=== PATIENT | male | born 1945 | race Caucasian/White ===

== ENCOUNTER 2016-06-01 19:14 | Inpatient (IN) | payer MEDICARE, OTHER ==
[~2016-06-01] VITALS: Ht 177.8 cm; Wt 120.8 kg
[~2016-06-01 19:14] MED LIST: ATOR10TA GT; GLYB1TAB3 GT; PIOG30TA2 PO
[2016-06-01] MEDS ORDERED: IV NS 0.9% 1,000 ML BAG IV ONE ×2 (19:30→21:30)
[2016-06-01] MEDS ORDERED: IV NS 0.9% 1,000 ML ONE ×2 (19:32→22:58)
[2016-06-01] MEDS ORDERED: IV SET PRIMARY 1 EA INFUS.SET MC ONE ×2 (19:32→22:58)
[2016-06-01 19:53] LABS: ANION GAP 15 (5-14); CALCIUM, SERUM 9.2 mg/dL (8.5-10.1); CARBON DIOXIDE 24 mmol/L (21-32); CHLORIDE 100 mmol/L (98-107); CREATININE 1.4 mg/dL (0.6-1.3); GLUCOSE 234 mg/dL (74-106); POTASSIUM 4.1 mmol/L (3.5-5.1); SODIUM SERUM 135 mmol/L (136-145); UREA NITROGEN, BLOOD 21 mg/dL (7-18)
[2016-06-01 20:00] LABS: ALANINE AMINOTRANSFERASE 158 U/L (12-78); ALBUMIN 2.5 g/dL (3.4-5.0); ASPARTATE AMINOTRANSFERASE 114 U/L (15-37); BILIRUBIN,DIRECT 7.4 mg/dL (0.0-0.2); BILIRUBIN,TOTAL 8.5 mg/dL (0.2-1.0); INDIRECT BILIRUBIN 1.1 mg/dL (0.0-1.1); INR 1.2 (0.87-1.13); TOTAL PROTEIN, SERUM 7.4 g/dL (6.4-8.2)
[2016-06-01 20:02] LABS: TROPONIN I < 0.017 ng/mL (0.00-0.056)
[2016-06-01 20:36] LABS: DIFF TOTAL % 100 %; HEMATOCRIT 36 % (39-51); HEMOGLOBIN 12.3 g/dL (13.5-17.5); LYMPHOCYTES # (AUTO) 0.3 /CMM (0.8-4.8); LYMPHOCYTES % (AUTO) 2.4 % (20.0-44.0); MEAN CORPUSCULAR HEMOGLOBIN 30 PG (26.0-33.0); MEAN CORPUSCULAR HGB CONC 34 g/dl (31.0-36.0); MEAN CORPUSCULAR VOLUME 88 fL (80-96); MONOCYTES # (AUTO) 0.5 /CMM (0.1-1.30); MONOCYTES % (AUTO) 3.6 % (2.0-12.0); NEUTROPHILS # (AUTO) 12.6 /CMM (1.8-8.9); PLATELET COUNT (AUTO) 288 /CMM (150-450); RED BLOOD CELL COUNT(AUTO) 4.14 MIL/uL (4.5-6.0); WHITE BLOOD COUNT (AUTO) 13.4 K/uL (4.3-11.0)
[2016-06-01] MEDS ORDERED: IOHEXOL-300 100 ML VIAL IV ONE (21:25)
[2016-06-01] MEDS ORDERED: IV NS 0.9% 250 ML IV ONE (21:25)
[2016-06-01] MEDS ORDERED: CT SWABBABLE VALVE TRANS SET 1 EA INFUS.SET MC ONE (21:25)
[2016-06-01 21:47] LABS: BAND % (MANUAL) 22 % (0.0-5.0); LYMPHOCYTES % (MANUAL) 5 % (16-48)
[2016-06-01 21:48] LABS: ANISOCYTOSIS 1+; PLATELET ESTIMATE ADEQUATE
[2016-06-02 01:30] VITALS: BP 121/60
[2016-06-02 02:00] VITALS: BP 121/60
[2016-06-02] MEDS ORDERED: DEXTROSE 50%-WATER 50 ML DISP.SYRIN IV PRN (02:30)
[2016-06-02] MEDS ORDERED: Z GUARD REMEDY 2 OZ OINT TP PRN (02:30)
[2016-06-02] MEDS ORDERED: ACETAMINOPHEN 325 MG TABLET PO PRN (02:30)
[2016-06-02] MEDS ORDERED: ONDANSETRON HCL/PF 4 MG/2 ML VIAL IVP PRN (02:30)
[2016-06-02] MEDS ORDERED: ZOLPIDEM TARTRATE 5 MG TABLET PO PRN (02:30)
[2016-06-02] MEDS: BLOOD SUGAR DIAGNOSTIC 1 EACH STRIP IN SCH ×5 (02:30→21:51)
[2016-06-02] MEDS ORDERED: MORPHINE SULFATE INJ 2 MG/ML DISP.SYRIN IV PRN (02:30)
[2016-06-02] MEDS ORDERED: IV SET PRIMARY PUMP SET 1 EA INFUS.SET MC ONE (03:27)
[2016-06-02] MEDS ORDERED: IV NS 0.9% 1,000 ML ONE (03:28)
[2016-06-02] MEDS: IV NS 0.9% 1,000 ML IV PRN ×2 (03:31→20:31)
[2016-06-02] MEDS: INSULIN REGULAR, HUMAN 100 UNIT/ML 3 ML VIAL SQ PRN (06:16)
[2016-06-02 08:00] VITALS: BP 116/61
[2016-06-02] MEDS: PANTOPRAZOLE 40 MG TABLET.DR PO SCH (08:26)
[2016-06-02 16:00] VITALS: BP 127/69
[2016-06-02 20:00] VITALS: BP 129/62
[2016-06-02 22:00] VITALS: BP 129/62
[2016-06-03] MEDS: BLOOD SUGAR DIAGNOSTIC 1 EACH STRIP IN SCH ×4 (06:22→21:54)
[2016-06-03 06:59] LABS: HEMATOCRIT 28 % (39-51); HEMOGLOBIN 9.5 g/dL (13.5-17.5); MEAN CORPUSCULAR HEMOGLOBIN 30 PG (26.0-33.0); MEAN CORPUSCULAR HGB CONC 34 g/dl (31.0-36.0); MEAN CORPUSCULAR VOLUME 88 fL (80-96); PLATELET COUNT (AUTO) 194 /CMM (150-450); RED BLOOD CELL COUNT(AUTO) 3.16 MIL/uL (4.5-6.0); RETICULOCYTE COUNT 2.2 % (0.6-2.5); WHITE BLOOD COUNT (AUTO) 5.5 K/uL (4.3-11.0)
[2016-06-03] MEDS: PANTOPRAZOLE 40 MG TABLET.DR PO SCH ×2 (07:30→08:53)
[2016-06-03 07:41] LABS: ALANINE AMINOTRANSFERASE 102 U/L (12-78); ALBUMIN 1.7 g/dL (3.4-5.0); ANION GAP 12 (5-14); ASPARTATE AMINOTRANSFERASE 61 U/L (15-37); BILIRUBIN,TOTAL 5.4 mg/dL (0.2-1.0); CARBON DIOXIDE 25 mmol/L (21-32); CHLORIDE 108 mmol/L (98-107); CREATININE 0.9 mg/dL (0.6-1.3); GLUCOSE 124 mg/dL (74-106); POTASSIUM 3.7 mmol/L (3.5-5.1); SODIUM SERUM 141 mmol/L (136-145); TOTAL PROTEIN, SERUM 5.8 g/dL (6.4-8.2); UREA NITROGEN, BLOOD 21 mg/dL (7-18)
[2016-06-03 07:47] LABS: CHOLESTEROL 231 mg/dL (<200); LDL 192 mg/dL (0-99); THYROID STIMULATING HORMONE 0.658 uIU/mL (0.358-3.74); TRIGLYCERIDES 232 mg/dL (30-150)
[2016-06-03 07:49] LABS: IRON, SERUM 40 ug/dl (50-175); PERCENT SATURATION 20 % (14-33); TOTAL IRON BINDING CAPACITY 202 ug/dl (250-450)
[2016-06-03 08:00] VITALS: BP 115/65
[2016-06-03 08:19] LABS: HDL CHOLESTEROL < 10 mg/dL (40-60)
[2016-06-03] MEDS: IV NS 0.9% 1,000 ML IV PRN (08:55)
[2016-06-03] MEDS ORDERED: SECONDARY IV SET 1 EA INFUS.SET MC ONE (09:38)
[2016-06-03] MEDS: Magnesium 1GM/D5W 100ML PREMIX 100 ML IV SCH ×2 (09:43→12:41)
[2016-06-03 10:12] LABS: ERYTHROCYTE SEDIMENTATION RATE > 140 MM/HR (0-20)
[2016-06-03 10:48] LABS: EOSINOPHILS % (MANUAL) 2 % (0-4); LYMPHOCYTES % (MANUAL) 22 % (16-48); PLATELET ESTIMATE ADEQUATE
[2016-06-03 10:49] LABS: RBC MORPHOLOGY COMMENT NORMAL RBC MORPH
[2016-06-03] MEDS ORDERED: IOHEXOL 50 ML IV ONE (10:50)
[2016-06-03] MEDS ORDERED: SUCCINYLCHOLINE CHLORIDE 20 MG/ML VIAL ONE (10:55)
[2016-06-03 12:47] LABS: HEPATITIS C VIRUS AB <0.1 s/co ratio (0.0-0.9)
[2016-06-03 16:00] VITALS: BP 123/69
[2016-06-03] MEDS: INSULIN REGULAR, HUMAN 100 UNIT/ML 3 ML VIAL SQ PRN ×2 (17:00→21:56)
[2016-06-03 19:57] VITALS: BP 104/54
[2016-06-03 22:00] VITALS: BP 104/54
[2016-06-04] MEDS: BLOOD SUGAR DIAGNOSTIC 1 EACH STRIP IN SCH (06:21)
[2016-06-04] MEDS: INSULIN REGULAR, HUMAN 100 UNIT/ML 3 ML VIAL SQ PRN (06:22)
[2016-06-04] MEDS: IV NS 0.9% 1,000 ML IV PRN (06:26)
[2016-06-04 07:28] LABS: CALCIUM, SERUM 8.4 mg/dL (8.5-10.1); CREATININE 0.9 mg/dL (0.6-1.3); POTASSIUM 4.1 mmol/L (3.5-5.1)
[2016-06-04 07:51] LABS: ALBUMIN 1.8 g/dL (3.4-5.0); BILIRUBIN,DIRECT 2.1 mg/dL (0.0-0.2); BILIRUBIN,TOTAL 2.7 mg/dL (0.2-1.0); INDIRECT BILIRUBIN 0.6 mg/dL (0.0-1.1); TOTAL PROTEIN, SERUM 6.2 g/dL (6.4-8.2)
[2016-06-04 08:00] VITALS: BP 110/60
[2016-06-04] MEDS: PANTOPRAZOLE 40 MG TABLET.DR PO SCH (10:23)
== END 2016-06-04 14:12 | disposition home or self-care (01) | DRG 444 ==
LOC: ER 19:16 → MED 23:58
PROVIDERS: ADMIT Nurse Practitioner Acute Care; ATTEND Nurse Practitioner Acute Care
PROC: BF14YZZ Fluoroscopy of Gallbladder, Bile Ducts and Pancreatic Ducts using Other Contrast (ICD-10-PCS; 2016-06-03)
PROC: 0F798ZZ Dilation of Common Bile Duct, Via Natural or Artificial Opening Endoscopic (ICD-10-PCS; principal; 2016-06-03 11:16)
DX: K83.1 Obstruction of bile duct (principal); E43 Unspecified severe protein-calorie malnutrition; N17.0 Acute kidney failure with tubular necrosis; R65.11 Systemic inflammatory response syndrome (SIRS) of non-infectious origin with acute organ dysfunction; K72.00 Acute and subacute hepatic failure without coma; E87.1 Hypo-osmolality and hyponatremia; K86.2 Cyst of pancreas; D72.825 Bandemia; E80.6 Other disorders of bilirubin metabolism; Z87.891 Personal history of nicotine dependence; E78.5 Hyperlipidemia, unspecified; N28.1 Cyst of kidney, acquired; E66.01 Morbid (severe) obesity due to excess calories; E86.1 Hypovolemia; I10 Essential (primary) hypertension; Z90.49 Acquired absence of other specified parts of digestive tract; R74.0 Nonspecific elevation of levels of transaminase and lactic acid dehydrogenase [LDH]; Z68.38 Body mass index [BMI] 38.0-38.9, adult; K82.8 Other specified diseases of gallbladder
CPT/HCPCS: 36415; 71010-TC; 74000-TC; 74181-TC; 76700-TC; 80048-TC; 80053-TC; 80061-TC; 80074; 80076-TC; 82105; 82378; 82962-TC; 83516; 83540-TC; 83690-TC; 83735-TC; 84100-TC; 84443-TC; 84484-TC; 85025-TC; 85045-TC; 85652-TC; 85730-TC; 86301; 87081-TC; 88305-TC; 88312-TC; 93307-TC; 94799-TC; 97001-TC; 97003-TC; A4606; J0330; J1815; J3475; J7030; J7050; Q9967; Z7610